=== PATIENT | female | born 1950 | race Caucasian/White ===

== ENCOUNTER 2019-06-05 15:30 | Outpatient (RCR) | payer OTHER, SELFPAY ==
--- NOTE | 2018-12-13 10:16 | HP.OTEVAL_ITS ---
Patient's Visit Information LISSETTE MARCH is a 67 year old F, referred to Occupational Therapy by ALMA HITCHCOCK, with a diagnosis of TFCC injury right wrist, CTS right. Date of Evaluation: 12/13/18 Occupational Therapist: Viji Mckeon, HIRAM/Heidi, CHT - Subjective Subjective: This 67 year old female was seen for OT eval following a right wrist injury. PT states on 05/05/18 she went to see the company nurse with numbness/tingling. pt states he was having pain and tingling until she had sx on . pt underwent a right endoscopic carpal tunnelrelease, right arthroscopic TFCC repair, right open distal ulna stabilization procedure. PT states since sx her numbness/tingling has resolved. Pt arrives with orthosis on and reports no need to have adj. made at this time. pt is painful and limited with any use of right UE at this time with ADLs and IADLS. - ADLs Dressing: Overhead shirt, Button shirt, Pants, Socks, Shoes Fasteners: Tie shoes, Zippers Eating: Use silverware, Cut food, Drink from glass Bathing: Handle washcloth & soap, Wash hair Toileting: Manage clothing Grooming: Comb hair, [place] teeth Kitchen: Chop with knife, Load/unload palliative care nurse practitioner, Place dish in microwave, Peel fruits & vegetables, Open jars, Open bottle caps, Ziplock bags, Lift gallon of milk, Pour from pitcher, Lift saucepan, Take dish out of oven Household: Vacuum, Sweep/mop, Dust, Laundry, Wash windows Miscellaneous: Handle money (change), Hold change, Take things out of wallet, [place], Operate spray bottle, Drive, Function in drive through window - Pain right wrist/hand 7 Pain Intensity Range: 5, 8 - ROM Elbow: right -30/130 left 0/145 Forearm: right NT left supination 90 pronation 80 Wrist: right NT left 65/60 ROM Comments: Therapist will test right forearm sup/prin and wrist at 6 weeks s/p - Strength Electronic Engineering Draftsperson: right NT left 40# Lateral Pinch: right NT left 12# Tripod Pinch: right NT left 8# - Sensation Sensation Comments: reports return of sensation after CTR - Quick DASH-Disab of Arm,Shoulder& Hand Quick DASH Score: 91.6650 - Hand/Wrist Evaluation Total Score of Pain & Functional Sections: 88 - Goals Goal:100% adherence to protocol: Yes Comment: Dr. Larkin Peripheral TFCC repair protocol Goal:Daily scar massage when approriate: Yes Goal:ROM equal to unaffected hand: Yes Comment: right wrist and forearm Goal:Electronic Engineering Draftsperson/Pinch strength at least 75% of unaffected hand: Yes Goal:No pain with affected hand use: Yes Comment: with ADLs and IADLs Goal:Full use of affected hand in daily activities including: Yes Goal:Decrease scar hypersensitivity: Yes - Rehabilitation General Assessment: Pt currently 3 weeks s/p right arthroscopic TFCC repair, right endoscopic carpal tunnel release, right open ulna stabilization on 11/22/18. Today pt presents with limited elbow and digit ROM. Therapist is unable to get ROM of forearm/wrist until pins removed. pt limited with pain, ROM and use of right UE for ADLs and IADls. Pt in need of skilled OT services 1-2x week for 8 weeks to return pts ROM and strength to PLOF. Today pt ed. on Dr. Larkin peripheral TFCC repair protocol, pt ed. on ROM of shoulder and elbow- pt instructed in importance of keeping forearm in neutral postions for hygine, and with ROM ex. of elbow and digits. therapist also ed. pt on scar mtg and desensitization. PT demo understanding of elbow and digit AROM. pt demo undersatnding and agree to POC. Rehabilitation Potential: Good - Anticipated Interventions Anticipated Interventions: A/AAROM/PROM, Strengthening, Scar Care, Triggerpoint Release, Desensitization, Modalities, Orthoses, Ergonomic Education, Fine Motor Coord/Gregory - Visit Plan Frequency: 1-2x /Week Duration: 2 Months General Plan: week 2 shoulder, digit and elbow AROM with forearm in Neutral. week 6 begin short arch wrist and forearm rataion - if no S-L repair, begin dart throwers wrist motion to neutral flexion at 8 wrrks or once pin is removed. progress to full AROM of wrist and forearm at 10-12 weeks. begin passive ROM of wrist and forearm at 6 weeks (pin removal). strengthening of wrist and forearm at 10-12 weeks. strengthening of hand at 10-12 weeks TEXT: Thank you for the opportunity to evaluate your patient. For Medicare and Medicare HMO plans, please review the plan of care and approve it. It will need to be FAXED BACK to us at [phone] for Medicare purposes. Please let me know if there are questions or concerns regarding this plan of care. Physician Signature: Date:
--- NOTE | 2019-01-03 09:47 | HP.OTREVAL ---
ALMA HITCHCOCK, It has been my pleasure to treat LISSETTE MARCH over the last 3 visits for TFCC injury right wrist, CTS right. Please see the progress note below for an update on the occupational therapy plan of care! Subjective: This pt arrives 6 weeks s/p TFCC- state she has pain at times- states she was attempting to shower without orthsis and then had difficulty sleeping following. pt states she is doing ok- notices pain with daily tasks with brace on- pt 6 weeks s/p - pt reports she is performing elbow,shoulder and digit ROM daily. Objective/Function: Pt has been seen 1x week. PT Demo shoulder/elbow ROM WNL. pt demo wrist short arch motion 30* pt has pain with attempting motion. pt advised to perform motion slow and controlled- pt given handout on ex short arch wrist. pt painful with attempt to initiate forearm supination/pronation.(as pt is 6 weeks S/p tday an this can be initiated) Therapist advised pt perform ex. slow and controlled. Due to pts increase pain therapist did not cut down orthosis to short arm wrist orthosis as protocol indicates this can be done between 6-8 weeks. Therapist will address this next visit. Therapist cont. to ed. pt that protocol advises she can remove orthosis for light activity at 10-12 weeks (as to not remove for bathing at this time) Therapist will continue to follow Dr. Larkin Peripheral TFCC repair protocol- Progressing to full AROM of wrist and forearm at 10-12 weeks. Therapist giving pt a week to work on AROM of wrist and forearm -prior to therapist initiating PROM (as indicated can begin at 6 weeks on protocol) Pt guarded with all movements- Plan Frequency: 1-2x /Week Duration: 2 Months Plan: will cont to follow protocol of dr. larkin priperal TFCC repair protocol unless otherwise instructed by Anticipated Interventions Anticipated Interventions: A/AAROM/PROM, Strengthening, Scar Care, Triggerpoint Release, Desensitization, Modalities, Orthoses, Ergonomic Education, Fine Motor Coord/Gregory Please do not hesitate to contact me at [phone] by phone or if you have questions or concerns regarding this new plan of care! Sincerely, Viji Mckeon, OTR/L, CHT
--- NOTE | 2019-01-03 16:30 | HP.OTEVAL_ITS ---
Patient's Visit Information LISSETTE MARCH is a 68 year old F, referred to Occupational Therapy by ALMA HITCHCOCK, with a diagnosis of TFCC injury right wrist, CTS right. Date of Evaluation: 12/13/18 Occupational Therapist: Viji Mckeon, HIRAM/Heidi, CHT - Subjective Subjective: This 67 year old female was seen for OT eval following a right wrist injury. PT states on 05/05/18 she went to see the company nurse with numbness/tingling. pt states he was having pain and tingling until she had sx on . pt underwent a right endoscopic carpal tunnel release, right arthroscopic TFCC repair, right open distal ulna stabilization procedure. PT states since sx her numbness/tingling has resolved. Pt arrives with orthosis on and reports no need to have adj. made at this time. pt is painful and limited with any use of right UE at this time with ADLs and IADLS. - ADLs Dressing: Overhead shirt, Button shirt, Pants, Socks, Shoes Fasteners: Tie shoes, Zippers Eating: Use silverware, Cut food, Drink from glass Bathing: Handle washcloth & soap, Wash hair Toileting: Manage clothing Grooming: Comb hair, [place] teeth Kitchen: Chop with knife, Load/unload elevator examiner, Place dish in microwave, Peel fruits & vegetables, Open jars, Open bottle caps, Ziplock bags, Lift gallon of milk, Pour from pitcher, Lift saucepan, Take dish out of oven Household: Vacuum, Sweep/mop, Dust, Laundry, Wash windows Miscellaneous: Handle money (change), Hold change, Take things out of wallet, Write, Operate spray bottle, Drive, Function in drive through window - Pain right wrist/hand 4 Pain Intensity Range: 5, 8 - ROM Elbow: right -30/130 left 0/145 Forearm: right NT left supination 90 pronation 80 Wrist: right NT left 65/60 ROM Comments: Therapist will test right forearm sup/prin and wrist at 6 weeks s/p - Strength Marine Habitat Resource Specialist: right NT left 40# Lateral Pinch: right NT left 12# Tripod Pinch: right NT left 8# - Sensation Sensation Comments: reports return of sensation after CTR - Quick DASH-Disab of Arm,Shoulder& Hand Quick DASH Score: 91.6650 - Hand/Wrist Evaluation Total Score of Pain & Functional Sections: 88 - Goals Goal:100% adherence to protocol: Yes Comment: Dr. Larkin Peripheral TFCC repair protocol Goal:Daily scar massage when approriate: Yes Goal:ROM equal to unaffected hand: Yes Comment: right wrist and forearm Goal:Marine Habitat Resource Specialist/Pinch strength at least 75% of unaffected hand: Yes Goal:No pain with affected hand use: Yes Comment: with ADLs and IADLs Goal:Full use of affected hand in daily activities including: Yes Goal:Decrease scar hypersensitivity: Yes - Rehabilitation General Assessment: Pt currently 3 weeks s/p right arthroscopic TFCC repair, right endoscopic carpal tunnel release, right open ulna stabilization on 11/22/18. Today pt presents with limited elbow and digit ROM. Therapist is unable to get ROM of forearm/wrist until 6 weeks s/p. pt limited with pain, ROM and use of right UE for ADLs and IADls. Pt in need of skilled OT services 1-2x week for 8 weeks to return pts ROM and strength to PLOF. Today pt ed. on Dr. Larkin peripheral TFCC repair protocol, pt ed. on ROM of shoulder and elbow- pt instructed in importance of keeping forearm in neutral position for hygine, and with ROM ex. of elbow and digits. therapist also ed. pt on scar mtg and desensitization. PT demo understanding of elbow and digit AROM. pt demo undersatnding and agree to POC. Rehabilitation Potential: Good - Anticipated Interventions Anticipated Interventions: A/AAROM/PROM, Strengthening, Scar Care, Triggerpoint Release, Desensitization, Modalities, Orthoses, Ergonomic Education, Fine Motor Coord/Gregory - Visit Plan Frequency: 1-2x /Week Duration: 2 Months General Plan: week 2 shoulder, digit and elbow AROM with forearm in Neutral. week 6 begin short arch wrist and forearm rataion - if no S-L repair, begin dart throwers wrist motion to neutral flexion at 8 weeks following protocol. progress to full AROM of wrist and forearm at 10-12 weeks. begin passive ROM of wrist and forearm at 6 weeks following protocol. strengthening of wrist and forearm at 10-12 weeks. strengthening of hand at 10-12 weeks TEXT: Thank you for the opportunity to evaluate your patient. For Medicare and Medicare HMO plans, please review the plan of care and approve it. It will need to be FAXED BACK to us at [phone] for Medicare purposes. Please let me know if there are questions or concerns regarding this plan of care. Physician Signature: Date:
--- NOTE | 2019-02-16 12:05 | OTREVAL_ITS ---
ALMA HITCHCOCK, It has been my pleasure to treat LISSETTE MARCH over the last 9 visits for TFCC injury right wrist, CTS right. Please see the progress note below for an update on the occupational therapy plan of care! Subjective: pt states she was performing her supination ex. and she has more pain, swelling. pt states she started wearing her brace again at night- Objective/Function: pt had made good progress with ROM and we initiated light PRE. with light resistive yellow putty-and isometric ex. pt initiated on BTE and completed 2 full sessions, to provided skilled PRE for supervisor paper coating and forearm strength pt ananda well- pt has been out of her brace for 3 weeks without difficulty. pt demo with great gains in ROM of wrist at 60/55* and forearm sup/pron at 70* one week ago she was performing AAROM of forearm supination and she had increase in pain, pt was advised to decrease forearm ROM and ice. pt demo with slight increase in edema at 14.8cm left 14.5cm. wrist circumference and pain at 5/10 when she arrived to her therapy session. Therapist re-evaluated pt- she demo with the above- therapist advised pt to Ice as she had not been doing so- therapist advised to return to brace with heavy activity and with sleeping- pt agreed- therapist also ed. pt to avoid performing forearm supination/pron ex until her pain was less than 3/10. pt demo understading. therapist provided k-tape for ulnar side and TFCC support- pt to call therapist to inform if she felt k-tape was helpful -please re-eval pt and advise Plan Frequency: 1-2x /Week Duration: 2 Months Plan: will cont to follow protocol of dr. meenakshi kothari TFCC repair protocol unless otherwise instructed by . Anticipated Interventions Anticipated Interventions: A/AAROM/PROM, Strengthening, Scar Care, Triggerpoint Release, Desensitization, Modalities, Orthoses, Ergonomic Education, Fine Motor Coord/Gregory Please do not hesitate to contact me at [phone] by phone or if you have questions or concerns regarding this new plan of care! Sincerely, Viji Mckeon, OTR/L, CHT
--- NOTE | 2019-05-08 13:07 | OTREVAL_ITS ---
ALMA HITCHCOCK, It has been my pleasure to treat LISSETTE MARCH over the last 28 visits for TFCC injury right wrist, CTS right. Please see the progress note below for an update on the occupational therapy plan of care! Subjective: pt has been back to full duty for about 3 weeks and has struggled with increase pain since. pt states she has been taking her pain medication to sleep at night and still has difficulty- states she has returned to using her brace at home to avoid hurting it. pt states she is unable to wear a brace at work. pt states she sees 05/10/19. and hopes to have answers. Objective/Function: pt demo with right category development manager strength is 20# this is a decrease from last re-check that was at 30# left is 45#. right wrist 50/40. forearm supination 70. forearm pronation 80. pt has had a increase in pain. she arrives to therapy following work 3 x week. therapy initiated light PRE with most resisitve wt. 10#. (shoulder press, chest press, mid row) therapist has also ed. pt on wrist ergo with lift and carry. (with increase in pts pain no PRE has beed completed this session). pt has been ed. on use of tens unit for home use to decrease pain, ice, heat prn. Plan Frequency: 1-2x /Week Duration: 2 Months Plan: asked pt to schedule apt with ortho due to increase in pain-. will hold strengthening at this time untill pts pain is less than 3/10 or advises otherwise Anticipated Interventions Anticipated Interventions: A/AAROM/PROM, Strengthening, Scar Care, Triggerpoint Release, Desensitization, Modalities, Orthoses, Ergonomic Education, Fine Motor Coord/Gregory Please do not hesitate to contact me at [phone] by phone or if you have questions or concerns regarding this new plan of care! Sincerely, Viji Mckeon, DENISSER/L, CHT
--- NOTE | 2019-06-28 08:11 | HP.OTDCSUM ---
HP - OT D/C Summary It has been my pleasure to treat LISSETTE MARCH under orders from ALMA HITCHCOCK, for the diagnosis of TFCC injury right wrist, CTS right for a total of 36 visit(s). Please see the following information for a summary of their discharge status. - Overall Improvement % Improvement: 50 - Objective Objective/Function: right wrist 50/45. right hand method lasting machine operator strength 35# with pain in wrist and palm of hand. left hand method lasting machine operator strength is 45#. right lateral pinch 8#. right tripod pinch 6#. pt continues to have sharp shooting pain around wrist, proximal up foream. pt limited with ADLs due to pain. Pt to cont. with pain mtg and increase use of right hand with ADLS. - Goals Patient Goals: Regain Mobility, Regain Strength, Decrease Pain, Return to Work, Decrease Swelling/Stiffness, Improve Fine Motor Skills, Use Hand/Wrist/Arm Normally Again, Decrease Tingling/Numbness, Increase ROM, Be More Independent in ADLS, Decrease Sensitivity Goal:100% adherence to protocol: Yes Goal:Daily scar massage when approriate: Yes Goal:ROM equal to unaffected hand: Yes Goal:Law Secretary/Pinch strength at least 75% of unaffected hand: Yes Goal:No pain with affected hand use: Yes Goal:Full use of affected hand in daily activities including: Yes Goal:Decrease scar hypersensitivity: Yes - Plan Plan: D/C - D/C Information Discharge Comments: Pt has been seen in OT for 36 visits. pt made great progress but when returned to full duty at work she had a set back with pain. This pain is at wrist and radiates proximal into right forearm and ulnar side. Pt is using tens unit at night after work to decrease pain but continues to struggle with pain. with resistive testing pt has increase pain use of right UE for daily tasks and work tasks. Pt is using tape while at work to provide support to wrist. Pt advised to cont with light end range stretch to wrist and forearm, isometric strengthening at ananda. Pt demo understanding and is D/C with HEP. If there are questions or concerns regarding this patient's occupational therapy, please fell free to call me at [phone]. Thank you for the referral of this patient. Sincerely, Viji Mckeon, OTR/L, CHT
== END 2019-06-05 19:00 | disposition home or self-care (01) ==
LOC: OT 15:30
DX: S69.81XD Other specified injuries of right wrist, hand and finger(s), subsequent encounter (principal); G56.01 Carpal tunnel syndrome, right upper limb
CPT/HCPCS: 97035; 97110; 97140; 97166; 97530; 97763